=== PATIENT | female | born 1960 | race Caucasian/White ===

== ENCOUNTER 2023-05-05 16:41 | Emergency (ER) | payer BC, SELFPAY ==
[2023-05-05 16:42] VITALS: BP 151/78
[2023-05-05 17:08] LABS: % Basophils 0.2 % (0-2); % Eosinophils 1.9 % (0-6); % Immature Granulocytes 0.3 % (0-0.5); % Lymphocytes 13.2 % (20.5-51.1); % Monocytes 5.6 % (1.7-9.3); % Neutrophils 78.8 % (42.2-75.2); Absolute Eosinophils 0.2 10^3/uL (0-0.7); Absolute Lymphocytes 1.1 10^3/uL (1.2-3.4); Absolute Monocytes 0.5 10^3/uL (0.1-0.6); Absolute Neutrophils 6.8 10^3/uL (1.4-6.5); Hematocrit 29.4 % (37.0-47.0); Hemoglobin 9.9 g/dL (12.0-16.0); Mean Corp Hgb Conc. 33.7 g/dL (33.0-37.0); Mean Corpuscular Hgb 30.6 pg (27.0-31.0); Mean Corpuscular Volume 90.7 fL (81.0-99.0); Mean Platelet Volume 10.1 fL (7.4-10.4); Nucleated Red Blood Cells % 0 %; Platelet Count 280 10^3/uL (130-400); Red Blood Cell Count 3.24 10^6/uL (4.20-5.40); Red Cell Dist. Width 14.4 % (11.5-14.5); White Blood Cell Count 8.6 10^3/uL (4.8-10.8)
[2023-05-05 17:25] LABS: ALT (SGPT) 12 U/L (0-35); AST (SGOT) 22 U/L (14-36); Albumin 3.7 g/dl (3.5-5.0); Alkaline Phosphatase 94 U/L (38-126); Blood Urea Nitrogen 20 mg/dl (7-17); Calcium 6.5 mg/dl (8.4-10.2); Carbon Dioxide 29 mmol/L (22-30); Chloride 95 mmol/L (98-107); Glucose 98 mg/dl (70-99); Sodium 135 mmol/L (135-145); Total Bilirubin 0.6 mg/dl (0.2-1.3); Total Protein 6.5 g/dl (6.3-8.2)
[2023-05-05 17:32] LABS: Potassium 3.5 mmol/L (3.5-5.1)
[2023-05-05 17:34] LABS: Troponin I < 0.012 ng/ml
[2023-05-05 17:49] VITALS: BMI 27.0
--- NOTE | 2023-05-05 17:50 | ED.GENMED ---
History of Present Illness
General
Chief Complaint: Chest Pain
Time Seen by Provider: 05/05/23 17:50
Travel History
Have you had any contact with someone who has COVID-19?: No
Do you have any symptoms of coronavirus? Fever > 100 degrees, chills, cough, shortness of breath, sore throat, loss of taste or smell, muscle aches, or headache?: No
History of Present Illness
History of Present Illness:
HPI: Patient had chest pain started around 3 AM (15 hours ago). 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 She thinks maybe she has the flu but has not been coughing. She does not have a generalized achiness
but does have a little bit of a headache. She also has a little bit of a nasal discharge. She states that recent COVID testing was negative.
EXAM:
GENERAL: Well appearing in mild distress
HEENT: Moist oral mucosa
CARDIOVASCULAR: No murmurs, normal heart rate and rhythm, there is marked tenderness to the right chest wall and less so to the left side
PULMONARY: No respiratory distress, breath sounds are clear and equal
ABDOMEN: Soft with no peritoneal signs, no tenderness
NEUROLOGIC: Excellent strength all extremities, no coordination deficits
PSYCHIATRIC: Appropriate mental status, normal insight and judgement
EXTREMITIES: Nontender, no edema, moves all extremities equally, she has equal radial pulses
SKIN: No rash, no lesions
ED COURSE:
6 PM: I initially evaluated patient
NUMBER AND COMPLEXITY OF PROBLEMS ADDRESSED AT THE ENCOUNTER
� Chronic conditions affecting care: Hypothyroidism
� Acute Exacerbation and/or Progression of Chronic Illness: This is an acute problem
� Differential Diagnosis includes: ACS, pneumothorax, GERD
AMOUNT AND/OR COMPLEXITY OF DATA TO BE REVIEWED AND ANALYZED
� I performed an independent evaluation of and my interpretation is:
EKG: Sinus 72, leftward axis, no acute ST abnormality
CT:
X-rays: Chest x-ray shows no acute abnormality and shows no pneumothorax with no widened mediastinum
Laboratory Studies: Troponin less than 0.012, creatinine is 1.4, calcium of 6.5, hemoglobin is 9.9 down from 12.0 on 05/27/2016
Other:
� Review of other/old records: Calcium has been low in the past. I also reviewed the old hemoglobin level
� Clinical information was obtained by an independent historian: I spoke to the sister at bedside
� Prescriptions/Medications Considered but not given:
� Further testing considered but not performed: Considered CTA to evaluate for dissection/aortic pathology however the patient has CKD stage III and has renal insufficiency currently with a GFR of only 42.
RISK OF COMPLICATIONS AND/OR MORBIDITY OR MORTALITY OF PATIENT MANAGEMENT
� Social determinants of health affecting care: Lives at home, works at a middle school
� Discussion with other providers:
� Escalation of care including admission/observation vs risk of discharge considered: The patient has ongoing chest discomfort for past 15 hours. The patient had an initial troponin drawn about 1 hour ago and was unremarkable.
EKG is also unremarkable. Will check for flu as that is one of the patient's main concerns. Regarding the hypocalcemia, she states this is an ongoing issue which has been evaluated and monitored as an outpatient and she says she is 'doing good
with this'. On reassessment at 7:40 PM, the patient reports no significant improvement however appears fairly comfortable. On reassessment at 8:25 PM, the patient is eager to go home. She states she will also resume calcium supplementation.
Past History
Past History
ED Past Medical History: Other (gout)
ED Past Surgical History: Other (thyroid)
Social History
Tobacco: Non-smoker
Personal:
Living: with family
Phy Exam
Physical Exam
Physical Exam:
See HPI
Scores
Heart Score for Chest Pain Patients
STEMI patient?: Not applicable
Course
Orders/Labs/Results
Orders:
Orders
05/05/23 16:47
Electrocardiogram (*1) Urgent
Reason for Study: Chest Pain
EKG- Treatment ONCE
05/05/23 16:59
CMP [Comprehensive Metabolic Panel] Urgent
Complete Blood Count/With Diff Urgent
Troponin I Urgent
05/05/23 18:01
Influenza A+B Rapid Molecular Urgent
GABINO Source: Nasal Swab
Specimen Description:
CR Chest - 2 Views Urgent
Comment:
Reason For Exam: chest pain
05/05/23 18:02
Famotidine [Pepcid] 20 mg PO NOW STA
Mag Hydrox/Al Hydrox/Simeth [Maalox] 30 ml PO NOW STA
05/05/23 20:19
Acetaminophen [Tylenol] 1,000 mg PO NOW STA
05/05/23 20:24
Calcium Carbonate [[place] 500] 1,000 mg PO NOW STA
Abnormal Lab Results
05/05/23
16:59
RBC 3.24 L 10^6/uL
(4.20-5.40)
Hgb 9.9 L g/dL
(12.0-16.0)
Hct 29.4 L %
(37.0-47.0)
Absolute Neuts (auto) 6.8 H 10^3/uL
(1.4-6.5)
Absolute Lymphs (auto) 1.1 L 10^3/uL
(1.2-3.4)
Neutrophils % 78.8 H %
(42.2-75.2)
Lymphocytes % 13.2 L %
(20.5-51.1)
Chloride 95 L mmol/L
(98-107)
BUN 20 H mg/dl
(7-17)
Creatinine 1.4 H mg/dL
(0.6-1.0)
Calcium 6.5 L* mg/dl
(8.4-10.2)
05/05/23 16:59
05/05/23 16:59
Vital Signs
Initial and Last Documented VS:
Initial Vital Signs
Temp Pulse Resp BP Pulse Ox
98.0 F 82 18 151/78 100
05/05/23 16:42 05/05/23 16:42 05/05/23 16:42 05/05/23 16:42 05/05/23 16:42
Last Documented Vital Signs
Temp Pulse Resp BP Pulse Ox
98.0 F 68 11 118/65 100
05/05/23 16:42 05/05/23 19:30 05/05/23 19:30 05/05/23 19:00 05/05/23 19:30
*Critical Care Note
Total Time (30-74mins, 75-104mins- exclusive of procedures): Not Applicable
ED Attending Note
-
Portions of this chart may have been created with voice recognition software.� Occasional wrong word or��sound alike� substitutions may have occurred due to the inherent limitations of voice recognition software.
Discharge Plan
Departure
Patient Disposition: Home (Routine Discharge)
Date of Disposition: 05/05/23
Time of Disposition: 20:24
Patient with high blood pressure during this ER visit?: Yes
Discharge Problem:
Chest wall pain
Instructions: Hypocalcemia (DC), Chest Pain PCP Follow Up
Prescriptions:
No Action
temazepam 30 mg Capsule
30 mg PO HS
amitriptyline 10 mg Tablet
10 mg PO HSPRN PRN (Reason: sleep/anxiety)
calcitriol 0.5 mcg Capsule
0.5 mcg PO MOWEFR
ibuprofen [Advil] 200 mg Tablet
200 mg PO BIDPRN PRN (Reason: mild pain)
allopurinol 300 mg Tablet
450 mg PO DAILY
levothyroxine [Synthroid] 200 mcg Tablet
200 mcg PO MOWEFR@0700
valsartan-hydrochlorothiazide 160-25 mg Tablet
1 tab PO BID
Referrals:
Keith Smith MD [Family Provider] -
Activity Restrictions/Additional Instructions:
The cause of your pain is unclear but may be related to a musculoskeletal etiology. I recommend Tylenol as being safest for pain. Your calcium level is also very low and I recommend that you resume calcium supplementation. Follow with your
primary care doctor. I see no sign of heart attack based on the studies today.
Interventions
Interventions:
*Risk Screen - Suicide Last Done: 05/05/23 17:49
*General Assessment Last Done: 05/05/23 17:49
*Neglect/Abuse Screening Last Done: 05/05/23 17:49
ED- Fall Risk Assessment Last Done: 05/05/23 17:57
*ED COVID-19 Vaccine History Last Done: 05/05/23 17:49
ED- Cardiac Assessment Last Done: 05/05/23 17:56
[2023-05-05 17:55] VITALS: BP 132/71
[2023-05-05 18:00] VITALS: BP 129/74
[2023-05-05] MEDS: PEPCID 20 MG PO (18:16)
[2023-05-05] MEDS: MAALOX 30 ML PO (18:17)
[2023-05-05 19:00] VITALS: BP 118/65
[2023-05-05] MEDS: TYLENOL 1000 MG PO (20:39)
== END 2023-05-05 20:52 | disposition home or self-care (01) ==
LOC: EMR 16:41
PROVIDERS: Emergency Medicine; EMERGENCY PHYSICIAN Emergency Medicine; FAMILY PHYSICIAN Family Medicine
DX: R07.89 Other chest pain (principal); R51.9 Headache, unspecified; R09.89 Other specified symptoms and signs involving the circulatory and respiratory systems; R03.0 Elevated blood-pressure reading, without diagnosis of hypertension; M10.9 Gout, unspecified; E03.9 Hypothyroidism, unspecified
CPT/HCPCS: 99283; 71046; 80053; 84484; 85025; 87502; 93005